=== PATIENT | female | born 1990 | race Caucasian/White ===

== ENCOUNTER 2016-10-22 09:19 | Outpatient (CLI) | payer OTHER ==
[~2016-10-22] VITALS: Ht 160 cm; Wt 87.0 kg
[~2016-10-22 09:19] MED LIST: ALBUTEROL SULF8.5 GM IH; BENADRYL50 MG PO; CHROMAGEN,1 CAPSULE PO; DOXYCYCLINE HY100 MG PO; FLONASE16 G1 BOTH NARES; IBUPROFEN800 MG PO; LORATADINE10 M2 PO; MUCUS ER600 MG PO; NAPROSYN500 MG PO; PERCOCET 5/31 TABLET PO; PREDNISONE10 MG PO; PRENATAL COMPL1 EACH PO; PROVENTIL,2.5 MG/3 M IH; TESSALON200 MG PO; TRAMADOL HCL50 MG PO; ZOFRAN4 MG PO; ZYRTEC10 M2 PO
[2016-10-22 09:35] VITALS: BP 120/71
[2016-10-22] MEDS ORDERED: PRENATAL TABLE1 EAC3 PO (09:51)
[2016-10-22] MEDS ORDERED: PRILOSEC20 MG PO (09:51)
[2016-10-22 10:31] LABS: ADD MIUA? YES; BILIRUBIN NEGATIVE; BLOOD NEGATIVE; COLOR YELLOW ((YELLOW)); GLUCOSE (STRIP) NEGATIVE; KETONES NEGATIVE; LEUKOCYTES TRACE; NITRITE NEGATIVE; PROTEIN (STRIP) NEGATIVE; UROBILINOGEN 0.2 MG/DL (0.2-1.0)
[2016-10-22 10:38] LABS: BACTERIA NONE SEEN /HPF; EPITHELIAL CELLS RARE /HPF; MUCUS TRACE /LPF; RED BLOOD CELLS 0-5 /HPF (0-5); UCUL ADDED? NO; WHITE BLOOD CELLS 0-5 /HPF (0-5)
== END 2016-10-22 10:45 | disposition home or self-care (01) ==
LOC: LDRP-OP 09:19 → 2WEST 09:20 → LDRP-OP 01-05 16:04
PROVIDERS: Advanced Practice Midwife
DX: O26.893 Other specified pregnancy related conditions, third trimester (principal); R10.9 Unspecified abdominal pain; Z87.891 Personal history of nicotine dependence; Z3A.33 33 weeks gestation of pregnancy
CPT/HCPCS: 59025; 81003; 87086; G0378

== ENCOUNTER 2016-11-18 08:04 | Inpatient (IN) | payer OTHER ==
[~2016-11-18] VITALS: Ht 160 cm; Wt 88.0 kg
[2016-11-18] VITALS (16 sets, daily range): BP systolic 108–138; BP diastolic 57–90
[~2016-11-18 08:04] MED LIST changes: +PRENATAL TABLE1 EAC3 PO; +PRILOSEC20 MG PO
[2016-11-18] MEDS ORDERED: ALBUTEROL0.63 MG/3 IH (08:52)
[2016-11-18 13:14] LABS: EOSINOPHIL (%) 0.1 % (0-5); HEMATOCRIT 34.9 % (36.0-46.0); IMMATURE GRANULOCYTE (%) 0.3 % (0.0-0.7); INSTRUMENT ABS NEUTROPHIL CT 8.9 K/uL; LYMPHOCYTE COUNT 2.4 K/uL (1.0-2.8); MCH 27.2 PG (29.0-34.0); MCHC 32.7 G/DL (30.0-36.0); MCV 83.3 FL (83-99); MONOCYTE (%) 4.6 % (3-12); MONOCYTE COUNT 0.5 K/uL (0-0.8); NEUTROPHIL (%) 74.7 % (45-76); NEUTROPHIL COUNT 8.9 K/uL (1.8-6.4); PLATELET COUNT 324 K/uL (156-360); RBC DIS.WIDTH-CV 13.2 % (11.8-14.6); RBC DIS.WIDTH-SD 39.9 % (39-53); RED BLOOD COUNT 4.19 M/uL (3.80-5.20); WHITE BLOOD COUNT 11.8 K/uL (4.1-10.2)
[2016-11-19 08:02] VITALS: BP 113/58
[2016-11-19 08:19] LABS: EOSINOPHIL (%) 0.3 % (0-5); HEMATOCRIT 27.6 % (36.0-46.0); IMMATURE GRANULOCYTE (%) 0.4 % (0.0-0.7); IMMATURE GRANULOCYTE COUNT 0.1 K/uL; INSTRUMENT ABS NEUTROPHIL CT 8.3 K/uL; LYMPHOCYTE COUNT 3.5 K/uL (1.0-2.8); MCH 27.1 PG (29.0-34.0); MCHC 32.2 G/DL (30.0-36.0); MCV 84.1 FL (83-99); MEAN PLAT.VOLUME 10.2 uM^3 (9.5-12.4); MONOCYTE (%) 5.2 % (3-12); MONOCYTE COUNT 0.7 K/uL (0-0.8); NEUTROPHIL COUNT 8.3 K/uL (1.8-6.4); PLATELET COUNT 231 K/uL (156-360); RBC DIS.WIDTH-CV 13.3 % (11.8-14.6); RBC DIS.WIDTH-SD 40.9 % (39-53); WHITE BLOOD COUNT 12.6 K/uL (4.1-10.2)
[2016-11-19 08:29] LABS: RED BLOOD COUNT 3.28 M/uL (3.80-5.20)
[2016-11-19] MEDS ORDERED: IBUPROFEN800 MG PO (11:09)
[2016-11-19] MEDS ORDERED: BUTALB-APAP-CA1 EACH PO (11:09)
[2016-11-19 22:43] VITALS: BP 120/70
[2016-11-20 07:45] VITALS: BP 124/75
[2016-11-20] MEDS ORDERED: PERCOCET 5/31 TABLET PO (11:44)
== END 2016-11-20 14:45 | disposition home or self-care (01) | DRG 774 ==
LOC: LDRP-OP 08:04 → 2WEST 08:05 → LDRP-OP 12-26 13:58
PROVIDERS: Advanced Practice Midwife; Obstetrics & Gynecology
PROC: 10907ZC Drainage of Amniotic Fluid, Therapeutic from Products of Conception, Via Natural or Artificial Opening (ICD-10-PCS; principal; 2016-11-18)
PROC: 3E0R3BZ Introduction of Anesthetic Agent into Spinal Canal, Percutaneous Approach (ICD-10-PCS; principal; 2016-11-18)
PROC: 10E0XZZ Delivery of Products of Conception, External Approach (ICD-10-PCS; principal; 2016-11-18)
PROC: 0HQ9XZZ Repair Perineum Skin, External Approach (ICD-10-PCS; principal; 2016-11-18)
PROC: 00HU33Z Insertion of Infusion Device into Spinal Canal, Percutaneous Approach (ICD-10-PCS; principal; 2016-11-18)
DX: O10.92 Unspecified pre-existing hypertension complicating childbirth (principal); O16.4 Unspecified maternal hypertension, complicating childbirth; O99.344 Other mental disorders complicating childbirth; F41.9 Anxiety disorder, unspecified; O99.52 Diseases of the respiratory system complicating childbirth; O70.0 First degree perineal laceration during delivery; J45.909 Unspecified asthma, uncomplicated; K21.9 Gastro-esophageal reflux disease without esophagitis; O99.02 Anemia complicating childbirth; O99.62 Diseases of the digestive system complicating childbirth; Z3A.37 37 weeks gestation of pregnancy; Z37.0 Single live birth
CPT/HCPCS: 85025; C1755; J3010; J7120